=== PATIENT | male | born 1955 | race Caucasian/White ===

== ENCOUNTER 2018-05-17 12:21 | Day surgery (SDC) | payer OTHER ==
[~2018-05-17] VITALS: Ht 167.6 cm; Wt 63.8 kg
[2018-05-17] MEDS ORDERED: METFORMIN PO (14:18)
[2018-05-17] MEDS ORDERED: CHOLESTEROL MED PO (14:18)
[2018-05-17 14:23] VITALS: Ht 167.6 cm; Wt 63.8 kg
[2018-05-17 14:37] VITALS: BP 166/74; PULSE 90; RESP 17
--- NOTE | 2018-05-17 14:47 | PREAC ---
Date/Time of Note Date/Time of Note DATE: 05/17/18 TIME: 14:46 Anesthesia Eval and Record Evaluation Time Pre-Procedure Interview DATE: 05/17/18 TIME: 14:46 Age 62 Sex male NPO: 8 hrs Preoperative diagnosis screening Planned procedure colonoscopy Past Medical History Past Medical History: Includes Cardio: Dyslipidemia Endo: Diabetes Surgery & Anesthesia Issues No known issue Meds Anticoagulation: No Beta Jose M within 24 hr: No Reason Beta Jose M not given: Pt. not on B-Jose M Reported Medications [Cholesterol Med] No Conflict Check, PO 05/17/18 [Metformin] No Conflict Check, PO 05/17/18 Meds reviewed: Yes Allergies Coded Allergies: No Known Allergy (Unverified , 05/17/18) Allergies Reviewed: Yes Labs/Studies Labs Reviewed: Reviewed by anesthesiologist test: N/A Studies: ECG (n/a), CXR (n/a) Pre-procedure Exam Last vitals Vital Signs Date Temp Pulse Resp B/P (MAP) Pulse Ox O2 O2 Flow FiO2 Time Delivery Rate 05/17/18 98.1 90 17 166/74 99 Room Air 14:37 (104) Airway: Adequate mouth opening Mallampati: Mallampati I Teeth: Normal Lung: Normal Heart: Normal ASA Physical Status ASA physical status: 2 Emergency: None Planned Anesthetic General/MAC: MAC Planned Pain Management Parenteral pain med Pre-operative Attestations Prior to commencing anesthesia and surgery, the patient was re-evaluated, there was verification of: *The patient's identity *The results of appropriate recent lab work and preoperative vital signs *The above evaluation not changing prior to induction *Anesthetic plan, risk benefits, alternative and complications discussed with patient/family; questions answered; patient/family understands, accepts and wishes to proceed. ROBIN MIRANDA MD May 17, 2018 14:47
[2018-05-17] MEDS ORDERED: PROPOFOL 20 ML ONE (14:48)
[2018-05-17] MEDS ORDERED: ONDANSETRON 4 MG INJ IV PRN (15:00)
[2018-05-17 15:50] VITALS: BP 132/66; PULSE 66; RESP 16
--- NOTE | 2018-05-17 18:29 | PAC ---
Date/Time of Note Date/Time of Note DATE: 05/17/18 TIME: 18:29 Post-Anesthesia Notes Post-Anesthesia Note Last documented vital signs Vital Signs Date Temp Pulse Resp B/P (MAP) Pulse Ox O2 O2 Flow FiO2 Time Delivery Rate 05/17/18 98.2 66 16 132/66 98 Room Air 15:50 (88) 05/17/18 98.1 14:37 Activity: WNL Respiratory function: WNL Cardiovascular function: WNL Mental status: Baseline Pain reasonably controlled: Yes Hydration appropriate: Yes Nausea/Vomiting absent: No ROBIN MIRANDA MD May 17, 2018 18:29
== END 2018-05-17 15:52 | disposition home or self-care (01) ==
LOC: GIL 12:21
PROVIDERS: ATTEND Internal Medicine Gastroenterology
DX: Z12.11 Encounter for screening for malignant neoplasm of colon (principal); K57.30 Diverticulosis of large intestine without perforation or abscess without bleeding; E11.9 Type 2 diabetes mellitus without complications; E78.5 Hyperlipidemia, unspecified
CPT/HCPCS: 82962